=== PATIENT | male | born 1980 | race Caucasian/White ===

== ENCOUNTER 2019-07-31 11:18 | Emergency (ER) | payer OTHER ==
[~2019-07-31] VITALS: Ht 182.9 cm; Wt 81.7 kg
[2019-07-31 11:19] VITALS: BP 140/94
[2019-07-31] MEDS ORDERED: NAPROSYN500 MG PO (12:02)
[2019-07-31] MEDS ORDERED: TRAMADOL 50 MG50 MG PO (12:02)
[2019-07-31] MEDS ORDERED: NORFLEX100 MG PO (12:02)
== END 2019-07-31 12:40 | disposition home or self-care (01) ==
LOC: ER 11:18
DX: M43.6 Torticollis (principal); Z88.0 Allergy status to penicillin